=== PATIENT | male | born 1995 ===

== ENCOUNTER 2021-02-08 09:55 | Outpatient (CLI) | payer OTHER ==
--- NOTE | 2021-02-08 11:34 | Magnetic Resonance Report ---
MRI LEFT ANKLE WITHOUT CONTRAST INDICATION / CLINICAL INFORMATION: MAIN. TECHNIQUE: Multiplanar, multisequence MR images were obtained. COMPARISON: None available. FINDINGS: FLEXOR TENDONS: No significant abnormality. EXTENSOR TENDONS: No significant abnormality. LIGAMENTS: Chronic scarring/sprain of the ATFL and chronic sprain of the calcaneofibular ligament. Ti biotalar, spring, and deltoid ligaments demonstrate no significant abnormality. SOFT TISSUES: No significant abnormality. BONES: No significant bone marrow edema. No fracture. No osseous lesion. JOINTS: No significant arthritis. No significant joint effusion or synovitis. IMPRESSION: 1. Chronic sprains of the ATFL and calcaneofibular ligament. 2. No acute abnormality or specific findings to explain this patient's medial ankle pain. Report dictated by: Shen Mcmullen MD Report dictated on: 02/08/2021 10:15 AM I have reviewed the images, agree with this report, and edited this report as needed. Signer Name: Jonah Ambriz MD Signed: 02/08/2021 11:29 AM Workstation Name: [id number]
== END 2021-02-08 09:56 | disposition home or self-care (01) ==
LOC: MRI 09:55
PROVIDERS: ATTEND Specialist
DX: S93.402A Sprain of unspecified ligament of left ankle, initial encounter (principal); X58.XXXA Exposure to other specified factors, initial encounter; Y93.89 Activity, other specified; Y92.89 Other specified places as the place of occurrence of the external cause; Y99.8 Other external cause status
CPT/HCPCS: 73721